=== PATIENT | female | born 1965 | race Two or more races ===

== ENCOUNTER → 2024-01-30 | Outpatient (CLI) | payer BC, SELFPAY ==
--- NOTE | 2024-01-30 08:45 | XR_ITS ---
Examination: Screening digital mammography, bilateral Computer aided detection 3-D breast Tomosynthesis, bilateral Date and time of exam: January 30, 2024 0812 hours Compared to mammograms dating to 11/01/2015 Indication: Screening Technique: Nonmagnified MLO, CC views of the breasts to been obtained, reconstructed from 3-D Tomosynthesis images. R2 computer aided detection program utilized for evaluation of suspicious masses and/or abnormal calcifications. 3-D Tomosynthesis images obtained. Findings: Scattered areas of fibroglandular density 10 mm focal asymmetry upper outer right breast posterior depth 12 mm focal asymmetry upper outer left breast Impression: BI-RADS Category 0: Incomplete: Need additional imaging evaluation 10 mm focal asymmetry upper outer right breast posterior depth, recommend follow-up spot tomographic views 12 mm focal asymmetry upper outer left breast, recommend follow-up spot tomographic views Recommend bilateral breast sonography follow-up to complete the workup
== END | disposition home or self-care (01) ==
LOC: CDIM 08:02
PROVIDERS: Referring Provider Obstetrics & Gynecology; Visit Provider Obstetrics & Gynecology
DX: Z12.31 Encounter for screening mammogram for malignant neoplasm of breast (principal); R92.8 Other abnormal and inconclusive findings on diagnostic imaging of breast; N64.89 Other specified disorders of breast
CPT/HCPCS: 77063; 77067

== ENCOUNTER → 2024-03-05 | Outpatient (CLI) | payer BC, SELFPAY ==
--- NOTE | 2024-03-05 10:00 | XR_ITS ---
Examination: Breast ultrasound complete, bilateral Date and time of exam: March 05, 2024 1015 hours INDICATIONS: Mammogram January 30, 2024 10 mm focal asymmetry upper outer right breast posterior depth 12 mm focal asymmetry outer left breast Technique: Real-time grayscale ultrasonographic imaging bilateral breasts, including all 4 quadrants as well as nipple retroareolar and axillary regions. Findings: Sonographic images right and left breast demonstrated no cystic or solid masses IMPRESSION: BI-RADS Category 1: Negative study
--- NOTE | 2024-03-05 11:00 | XR_ITS ---
Examination: Diagnostic digital mammography, bilateral Computer aided detection 3-D breast Tomosynthesis, bilateral Date and time of exam: March 05, 2024 at 1030 hrs. Indications: Mammogram January 30, 2024 10 mm focal asymmetry upper outer right breast, 12 mm focal asymmetry upper outer left breast Technique: Nonmagnified MLO, CC views of the breasts to been obtained, reconstructed from 3-D Tomosynthesis images. R2 computer aided detection program utilized for evaluation of suspicious masses and/or abnormal calcifications. 3-D Tomosynthesis images obtained. Findings: Scattered areas of fibroglandular density No suspicious masses are depicted on the spot compression views Focal asymmetry does remain upper left breast MLO view Impression: BI-RADS Category 3: Probably benign findings One additional 6 month left mammographic follow-up is needed
== END | disposition home or self-care (01) ==
LOC: CDIM 09:54
PROVIDERS: PCP Obstetrics & Gynecology; Referring Provider Nurse Practitioner Family; Visit Provider Nurse Practitioner Family
DX: R92.333 Mammographic heterogeneous density, bilateral breasts (principal); N64.89 Other specified disorders of breast
CPT/HCPCS: 76641; 77062; 77066; G0279

== ENCOUNTER → 2024-08-19 | Outpatient (CLI) | payer BC, SELFPAY ==
--- NOTE | 2024-08-19 08:00 | XR_ITS ---
Examination: Diagnostic digital mammography, unilateral, left Computer aided detection 3-D breast Tomosynthesis, unilateral Date and time of exam: August 19, 2024 0729 hours INDICATIONS: Focal asymmetry upper left breast MLO view does remain on mammogram March 05, 2024 Technique: Nonmagnified MLO, CC views of the left breast have been obtained, reconstructed from 3-D Tomosynthesis images. R2 computer aided detection program utilized for evaluation of suspicious masses and/or abnormal calcifications. 3-D Tomosynthesis images obtained. Findings: Scattered areas of fibroglandular density. Stable focal asymmetry upper left breast MLO view Impression: BI-RADS category 2: Benign findings Recommend yearly follow-up mammography
== END | disposition home or self-care (01) ==
PROVIDERS: Referring Provider Nurse Practitioner Family; Visit Provider Nurse Practitioner Family
DX: R92.322 Mammographic fibroglandular density, left breast (principal)
CPT/HCPCS: 77061; 77065; G0279